=== PATIENT | female | born 1955 | race Caucasian/White ===

== ENCOUNTER 2020-07-23 14:17 | Outpatient (CLI) | payer OTHER, BC ==
[~2020-07-23 14:17] MED LIST: FENT1PAT10 TD; LEVO25TA2 PO; LEVO500T20 PO; PROR4 PO; SIMV-46 PO; SULF1TAB48 PO; TIOT18CA3 IH; TRAZ-251 PO
== END 2020-07-23 19:54 | disposition home or self-care (01) ==
LOC: SCA 14:17
PROVIDERS: ATTEND Internal Medicine Cardiovascular Disease
DX: I08.1 Rheumatic disorders of both mitral and tricuspid valves (principal); I10 Essential (primary) hypertension
CPT/HCPCS: 93306

== ENCOUNTER 2020-12-10 08:30 | Outpatient (CLI) | payer BC, OTHER | END 2020-12-10 20:34 | disposition home or self-care (01) | LOC: SUS 08:30 | PROVIDERS: ATTEND Internal Medicine Cardiovascular Disease | DX: N28.1 Cyst of kidney, acquired (principal); K82.8 Other specified diseases of gallbladder; I71.4 Abdominal aortic aneurysm, without rupture | CPT/HCPCS: 76700-TC ==